=== PATIENT | male | born 1950 | race Hispanic/Latino ===

== ENCOUNTER 2024-06-15 21:02 | Emergency (ER) | payer OTHER, MEDICARE ==
[~2024-06-15] VITALS: Ht 170.2 cm; Wt 79.4 kg
[2024-06-15] MEDS: TRIAMCINOLONE ACETONIDE 40 MG/ML 1ML VIAL IM ONE (21:35)
[2024-06-15] MEDS: ORPHENADRINE 60MG/2ML IM ONE (21:36)
[2024-06-15] MEDS: ketOROlac 30MG VIAL (30MG/ML) IM ONE (21:36)
[2024-06-15] MEDS ORDERED: KETO10TA2 PO (22:01)
[2024-06-15 22:02] VITALS: BP 128/74; PULSE 65; RESP 16; TEMP 98.2; O2SAT 97
== END 2024-06-15 22:11 | disposition home or self-care (01) ==
LOC: EDBD 21:02 → EDH 21:02
DX: G89.29 Other chronic pain (principal); M54.50 Low back pain, unspecified; E11.9 Type 2 diabetes mellitus without complications; F31.9 Bipolar disorder, unspecified; I10 Essential (primary) hypertension; F20.9 Schizophrenia, unspecified; Z98.890 Other specified postprocedural states
CPT/HCPCS: 99284; 96372 ×3; J3301; J1885; J2360